=== PATIENT | female | born 1955 | race Caucasian/White ===

== ENCOUNTER → 2017-04-07 | Outpatient (CLI) | payer MEDICARE ==
[~2017-04-07] MED LIST: ALBUTEROL17 GM; ARIXTRA7.5 MG/0.6 SQ; BACTRIM DS TABL1 TA1 DOB; COMBIVENT INH14.7 GM INH; COMBIVENT14.7 GM INH; COUMADIN5 MG PO; DULERA 200 MCG/13 GM IH; IBUPROFEN PO; KEFLEX500 MG PO; MOBIC PO; MONTELUKAST SOD10 MG PO; NEXIUM PO; NON-ASPIRIN PA500 M2 PO; PREDNISONE PO; PRILOSEC40 MG PO; PROMETHAZINE D118 ML PO; ROBITUSSIN15 MG/5 ML PO; SERTRALINE HCL100 M1 PO; SINGULAIR PO; TRAMADOL HCL50 M2 PO; ULTRAM PO; VITAMIN D10000 UNIT PO; ZITHROMAX PO; ZITHROMAX500 MG PO
--- NOTE | ~2017-04-07 | CR61 ---
[facility] A Service of [facility] & [facility] RADIOLOGY TEXT RESULTS PATIENT: JEANNINE URIBE LOCATION: [facility] : 57 UNIT #: [id number] AGE: [address]: Sameera Cain MD SEX: F ORDER DR: [id number] [facility] [address] [place], [place] [address] [id number] O MR#: [id number] Acc #: [id number] NAME: JEANNINE URIBE : 1955 SEX: F STUDY DATE/TIME: 04/07/2017 0936 UNIT: [facility] ROOM: STUDY DESCRIPTION: CR Cervical Spine Min 5 Views Attending Physician: Sameera Cain M.D. Referring Physician: Sameera Cain M.D. Ordering Physician: Sameera Cain M.D. [facility] RE[facility] This report is preliminary unless electronic signature is present EXAM Cervical spine series, 04/07/2017, 0936 hours. CLINICAL HISTORY 62-year-old woman with chronic neck soreness, headaches, and bulging disc for 20 years. Patient fell in her bathroom 6 years ago. Shoulder surgery 10 years ago and box fell on patient's head 20 years ago. COMPARISON 05/09/2014 FINDINGS AP, lateral, open mouth, lateral swimmer's view and bilateral oblique views were performed. The C1-T2 are visualized. There is no prevertebral soft soft-tissue swelling. There is disc height loss at C3-4, C4-5, C5-6, and C6-7 with moderate endplate spurring which is most prominent at C4-5. There is multilevel facet arthropathy throughout the same levels. The oblique views demonstrate no bony foraminal compromise. IMPRESSION There is multilevel degenerative disc disease with disc height loss, endplate spurring, and uncovertebral spurring with associated facet degenerative change extending from C3-4 through C6-7, most prominent at C4-5 and C5-6. There is no fracture, subluxation, or bony foraminal compromise. Dictated by... Zaida Carrasquillo M.D. THIS IS AN ELECTRONICALLY VERIFIED REPORT Zaida Carrasquillo M.D. at 04/07/2017 2:28 PM [facility] A Service of [facility] & [facility] RADIOLOGY TEXT RESULTS PATIENT: JEANNINE URIBE LOCATION: [facility] #: [id number] : 57 UNIT #: [id number] AGE: [address]: Sameera Cain MD SEX: F ORDER DR: SHERIN/vladislav TD: 04/07/2017 11:26 JOB #: [id number] MEDICAL IMAGING REPORT Page 1 of 1 COPY
== END | disposition home or self-care (01) ==
LOC: CRAD 09:09
DX: M54.2 Cervicalgia (principal); M50.30 Other cervical disc degeneration, unspecified cervical region; M47.896 Other spondylosis, lumbar region
CPT/HCPCS: 72050